=== PATIENT | male | born 1990 | race Two or more races ===

== ENCOUNTER 2023-09-09 20:36 | Emergency (ER) | payer OTHER ==
[~2023-09-09] VITALS: Ht 172.7 cm; Wt 77.0 kg
[2023-09-09 20:58] VITALS: BP 152/75; PULSE 81; RESP 16; O2SAT 97
== END 2023-09-09 22:26 | disposition left against medical advice (07) ==
LOC: ER 20:36
DX: J02.9 Acute pharyngitis, unspecified (principal); Z53.21 Procedure and treatment not carried out due to patient leaving prior to being seen by health care provider